=== PATIENT | female | born 1980 | race Caucasian/White ===

== ENCOUNTER 2016-12-18 09:03 | Emergency (ER) | payer MEDICAID ==
[~2016-12-18] VITALS: Ht 162.6 cm; Wt 113.4 kg
[2016-12-18 09:12] VITALS: BP 129/75
--- NOTE | 2016-12-18 10:00 | NUR ---
36/F BIB SELF c/o right sided anterior chest wall tightness x 5am today, denies sob, denies n/vhx anxiety. SKIN IS PINK/WARM/DRY; AAOX4 WITH EVEN AND STEADY GAIT; LUNGS CLEAR BL; HR EVEN AND REGULAR; PT DENIES ANY FEVER, CP, SOB, OR COUGH AT THIS TIME; PATIENT STATES PAIN OF 2/10 AT THIS TIME; VSS; PATIENT POSITIONED FOR COMFORT; HOB ELEVATED; BEDRAILS UP X2; BED DOWN. ER MD MADE AWARE OF PT STATUS.
[2016-12-18] MEDS ORDERED: KETOROLAC 60 MG/2 ML VIAL IM ONE (10:45)
[2016-12-18 11:16] VITALS: BP 122/73
== END 2016-12-18 11:16 | disposition home or self-care (01) ==
LOC: MED 09:03
DX: R07.89 Other chest pain (principal)
CPT/HCPCS: 71020; 96372; 99284; J1885

== ENCOUNTER 2017-06-08 19:08 | Emergency (ER) | payer MEDICAID ==
[~2017-06-08] VITALS: Ht 157.5 cm; Wt 108.9 kg
[2017-06-08 19:28] VITALS: BP 143/89
--- NOTE | 2017-06-08 19:52 | NUR ---
PT TAKEN TO OF
--- NOTE | 2017-06-08 20:07 | NUR ---
Dr. Reinoso evaluating patient
[2017-06-08] MEDS ORDERED: DEXAMETHASONE 10 MG/ML VIAL IM ONE (20:20)
[2017-06-08] MEDS ORDERED: KETOROLAC 60 MG/2 ML VIAL IM ONE (20:20)
[2017-06-08 21:10] VITALS: BP 137/81
== END 2017-06-08 21:10 | disposition home or self-care (01) ==
LOC: MED 19:08
DX: M65.4 Radial styloid tenosynovitis [de Quervain] (principal); M25.531 Pain in right wrist
CPT/HCPCS: 29125; 73130; 96372; 99284; J1100; J1885

== ENCOUNTER 2018-02-13 10:24 | Emergency (ER) | payer MEDICAID ==
[~2018-02-13] VITALS: Ht 157.5 cm; Wt 95.3 kg
--- NOTE | 2018-02-13 10:36 | NUR ---
PT AMBULATED TO ER BED 07
[2018-02-13 10:38] VITALS: BP 131/78
--- NOTE | 2018-02-13 11:09 | NUR ---
Patient discharged with v/s stable. Written and verbal after care instructions given and explained. Patient alert, oriented and verbalized understanding of instructions. Ambulatory with steady gait. All questions addressed prior to discharge. ID band removed. Patient advised to follow up with PMD. Rx of NAPROXYN given. Patient educated on indication of medication including possible reaction and side effects. Opportunity to ask questions provided and answered.
[2018-02-13 11:33] VITALS: BP 124/65
== END 2018-02-13 11:09 | disposition home or self-care (01) ==
LOC: MED 10:24
DX: M94.0 Chondrocostal junction syndrome [Tietze] (principal)
CPT/HCPCS: 99283

== ENCOUNTER 2020-06-03 11:49 | Emergency (ER) | payer MEDICAID ==
[~2020-06-03] VITALS: Ht 162.6 cm; Wt 128.8 kg
[2020-06-03 11:53] VITALS: BP 183/98
--- NOTE | 2020-06-03 11:57 | NUR ---
Pt ambulated to bed 11 with steady gait
--- NOTE | 2020-06-03 12:06 | NUR ---
EMT AT BEDSIDE FOR EKG
--- NOTE | 2020-06-03 12:10 | NUR ---
39/F c/o right sided chest pain that radiates from right shoulder/right scapula/subscapular region x 3 days. Denies cough/SOB. Denies nausea/vomiting. States was seen here a few days ago and dx with muscle spasm for pain in same region. However states pain is different this time because is more sharp, severe, stabbing. Pain lasts 1-2 minutes/episode and comes q 5min approximately. Not exertional. No relieving factors. Tried Motrin 600 mg to no relief. Pt connected to bedside monitor. Denies CP at this time. Appears NAD. medhx: Denies
[2020-06-03 12:59] LABS: BASOPHILS # (AUTO) 0.1 K/uL (0.00-0.22); BASOPHILS % (AUTO) 0.7 % (0.0-2.0); EOSINOPHILS # (AUTO) 0.1 K/uL (0-0.4); EOSINOPHILS % (AUTO) 1.7 % (0.0-4.0); HEMATOCRIT 38.5 % (36-48); HEMOGLOBIN 12.7 g/dL (12.0-16.0); LYMPHOCYTES # (AUTO) 1.7 K/uL (2.5-16.5); LYMPHOCYTES % (AUTO) 22.7 % (20.5-51.1); MEAN CORPUSCULAR HEMOGLOBIN 28 pg (27-31); MEAN CORPUSCULAR HGB CONC 33 g/dL (33-37); MEAN CORPUSCULAR VOLUME 84.5 fL (80-94); MONOCYTES # (AUTO) 0.4 K/uL (0.8-1.0); MONOCYTES % (AUTO) 5.5 % (1.7-9.3); NEUTROPHILS # (AUTO) 5.1 K/uL (1.8-7.7); NEUTROPHILS % (AUTO) 69.4 % (42.2-75.2); PLATELET COUNT (AUTO) 162 K/uL (140-450); RED BLOOD CELL COUNT(AUTO) 4.56 MIL/uL (4.20-5.40); RED CELL DISTRIBUTION WIDTH 13.3 % (11.6-13.7); WHITE BLOOD COUNT (AUTO) 7.4 K/uL (4.8-10.8)
[2020-06-03 13:09] LABS: ALBUMIN 3.3 g/dL (3.4-5.0); ANION GAP 8.5 (8-16); CARBON DIOXIDE 27.3 mmol/L (21-32); CREATININE 0.6 mg/dL (0.6-1.3); POTASSIUM 3.8 mmol/L (3.5-5.1); TOTAL BILIRUBIN 0.4 mg/dL (0.0-1.0)
[2020-06-03 13:46] VITALS: BP 135/71
--- NOTE | 2020-06-03 13:47 | NUR ---
Patient discharged with v/s stable. Written and verbal after care instructions given and explained. Patient alert, oriented and verbalized understanding of instructions. Ambulatory with steady gait. All questions addressed prior to discharge. ID band removed. Patient advised to follow up with PMD. Rx of Prilosec 20mg given. Patient educated on indication of medication including possible reaction and side effects. Opportunity to ask questions provided and answered.
== END 2020-06-03 13:47 | disposition home or self-care (01) ==
LOC: MED 11:49
DX: R07.9 Chest pain, unspecified (principal); K21.9 Gastro-esophageal reflux disease without esophagitis
CPT/HCPCS: 36415; 71045; 80053; 84484; 85025; 85379; 93005; 99285; Q0092

== ENCOUNTER 2020-10-11 17:54 | Emergency (ER) | payer MEDICAID ==
[~2020-10-11] VITALS: Ht 157.5 cm; Wt 123.8 kg
[2020-10-11 18:10] VITALS: BP 127/69
[2020-10-11] MEDS ORDERED: cephALEXin 500 MG CAP PO ONE (18:40)
[2020-10-11] MEDS ORDERED: PHENAZOPYRIDINE 100 MG TAB PO ONE (18:40)
[2020-10-11 18:55] LABS: APPEARANCE,URINE CLEAR (CLEAR); BILIRUBIN,URINE NEGATIVE (NEGATIVE); BLOOD, URINE TRACE-L (NEGATIVE); COLOR,URINE YELLOW (YELLOW); LEUKOCYTE ESTERASE ,URINE NEGATIVE (NEGATIVE); NITRITE, URINE NEGATIVE (NEGATIVE); UGLUCOSE NEGATIVE (NEGATIVE)
[2020-10-11 19:05] VITALS: BP 127/69
== END 2020-10-11 19:04 | disposition home or self-care (01) ==
LOC: MED 17:54
DX: N39.0 Urinary tract infection, site not specified (principal)
CPT/HCPCS: 81003; 81025; 99283